=== PATIENT | male | born 1975 | race Caucasian/White ===

== ENCOUNTER 2016-09-08 06:14 | Day surgery (SDC) | payer OTHER ==
[2016-09-03 12:20] VITALS: BMI 27.8
[~2016-09-08 06:14] MED LIST: DEXAMETHASONE SOD PHOSPHATE 10 MG/ML 1 ML VIAL IV ONE; HYDROmorphone 1 MG/ML 1 ML SYRINGE IVP PRN; LACTATED RINGERS 1,000 ML IV SCH; MIDAZOLAM 2 MG/2 ML VIAL IV PRN; ONDANSETRON 4 MG/2 ML VIAL IVP ONE; ceFAZolin 2 GM in SODIUM CHLORIDE 0.9% 100 ML IVPB ONE; metroNIDAZOLE-NS PMX 500 MG in SALINE 1 100ML.BAG IVPB ONE
[2016-09-08] MEDS ORDERED: KETOROLAC 30 MG/ML 1 ML VIAL ONE (07:37)
[2016-09-08] MEDS ORDERED: LIDOCAINE 1% INJ 10MG/ML (20 ML MDV) ONE (07:37)
[2016-09-08] MEDS ORDERED: ONDANSETRON 4 MG/2 ML VIAL ONE (07:37)
[2016-09-08] MEDS ORDERED: SUCCINYLCHOLINE CHLORIDE 100 MG/5 ML SYR IV ONE (07:37)
[2016-09-08] MEDS ORDERED: fentaNYL (PF) 50 MCG/ML 2 ML AMP ONE (07:37)
[2016-09-08] MEDS ORDERED: MIDAZOLAM 2 MG/2 ML VIAL ONE (07:37)
[2016-09-08] MEDS ORDERED: DEXAMETHASONE SOD PHOS (MDV) 100 MG/10 ML VIAL ONE (07:37)
[2016-09-08] MEDS ORDERED: PROPOFOL 10 MG/ML 20 ML VIAL IV ONE (07:37)
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
[2016-09-08 09:09] VITALS: RESP 18; TEMP 97
[2016-09-08 09:23] LABS: Basophils # (A) 0.1 k/uL (0-0.2); Basophils % (A) 1 %; CHCM 33.6; Eosinophils # (A) 0.2 k/uL (0-0.7); Eosinophils % (A) 1 %; HCT 42.2 % (39.0-53.0); HDW 2.73; HGB 14.2 gm/dL (13.0-17.5); Luc # (Auto) 0.23; Luc % (Auto) 2; Lymphocytes # (A) 2.1 k/uL (1.0-4.8); Lymphocytes % (A) 18 %; MCH 29.1 pg (25.0-35.0); MCHC 33.6 g/dL (31.0-37.0); MCV 86.6 fL (80.0-100.0); Mean Platelet Volume 6.8; Monocytes # (A) 0.5 k/uL (0-1.0); Monocytes % (A) 5 %; Neutrophils # (A) 8.3 k/uL (1.3-7.7); Neutrophils % (A) 73 %; RBC 4.87 m/uL (4.30-5.90); RDW 12.6 % (11.5-15.5); WBC 11.3 k/uL (3.8-10.6); WBC (Perox) 10.91
[2016-09-08 09:37] LABS: ALT 39 U/L (21-72); AST 20 U/L (17-59); Alkaline Phosphatase 60 U/L (38-126); Anion Gap 9 mmol/L; Blood Urea Nitrogen 11 mg/dL (9-20); Calcium 8.4 mg/dL (8.4-10.2); Carbon Dioxide 27 mmol/L (22-30); Chloride 106 mmol/L (98-107); Glucose 94 mg/dL (74-99); Non-African American GFR(MDRD) >60 (>60 ml/min/1.73 sqM); Sodium 142 mmol/L (137-145); Total Bilirubin 0.6 mg/dL (0.2-1.3); Total Protein 6.5 g/dL (6.3-8.2)
[2016-09-08 10:06] LABS: Potassium 3.9 mmol/L (3.5-5.1)
[2016-09-08 10:30] VITALS: BP 136/86; PULSE 86
== END 2016-09-08 10:41 | disposition home or self-care (01) ==
LOC: OR 06:14
PROVIDERS: ATTEND Dentist
DX: Z03.89 Encounter for observation for other suspected diseases and conditions ruled out (principal); Z87.820 Personal history of traumatic brain injury; Z98.2 Presence of cerebrospinal fluid drainage device
CPT/HCPCS: 41899; 80053; 85025; J2250; J2405; J2001; J3010; J1885; J1100; J0330; J2704

== ENCOUNTER 2017-05-04 16:46 | Emergency (ER) | payer OTHER ==
[2017-05-04 16:53] VITALS: BP 132/97; PULSE 110; RESP 18; TEMP 99.2
[2017-05-04] MEDS ORDERED: DIPH,PERTUS(ACELL)TETVAC-LF 0.5 ML VIAL IM ONE (17:07)
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
== END 2017-05-04 17:23 | disposition home or self-care (01) ==
LOC: EC 16:46
DX: S00.01XA Abrasion of scalp, initial encounter (principal); Z87.820 Personal history of traumatic brain injury; Z23 Encounter for immunization; Z79.899 Other long term (current) drug therapy; W01.198A Fall on same level from slipping, tripping and stumbling with subsequent striking against other object, initial encounter; Y92.009 Unspecified place in unspecified non-institutional (private) residence as the place of occurrence of the external cause
CPT/HCPCS: 90471; 90715; 99282

== ENCOUNTER 2017-09-22 06:18 | Day surgery (SDC) | payer OTHER ==
[2017-09-15 13:20] VITALS: BMI 29.7
[~2017-09-22 06:18] MED LIST changes: -DEXAMETHASONE SOD PHOSPHATE 10 MG/ML 1 ML VIAL IV ONE; -HYDROmorphone 1 MG/ML 1 ML SYRINGE IVP PRN; +LIDOCAINE 1% 20 ML VIAL (10MG/ML) FOR IV START INTRADERMA PRN; -MIDAZOLAM 2 MG/2 ML VIAL IV PRN; +MORPHINE SULFATE 2 MG/ML SYRINGE IV PRN; -ceFAZolin 2 GM in SODIUM CHLORIDE 0.9% 100 ML IVPB ONE; +ceFAZolin IN SWFI 2 GM/20 ML SYRINGE IVP ONE
[2017-09-22] MEDS ORDERED: fentaNYL (PF) 50 MCG/ML 2 ML AMP ONE (08:27)
[2017-09-22] MEDS ORDERED: SUCCINYLCHOLINE CHLORIDE 100 MG/5 ML SYR IV ONE (08:27)
[2017-09-22] MEDS ORDERED: PHENYLEPHRINE-0.9% NACL SYG 1 MG/10 ML SYRINGE ONE (08:27)
[2017-09-22] MEDS ORDERED: ACETAMINOPHEN IV (For NPO) 1,000 MG/100 ML VIAL ONE (08:27)
[2017-09-22] MEDS ORDERED: ONDANSETRON 4 MG/2 ML VIAL ONE (08:27)
[2017-09-22] MEDS ORDERED: KETOROLAC 30 MG/ML 1 ML VIAL ONE (08:27)
[2017-09-22] MEDS ORDERED: ROCURONIUM BROMIDE 10 MG/ML 10 ML VIAL IV ONE (08:27)
[2017-09-22] MEDS ORDERED: KETAMINE 10 MG/ML 20 ML VIAL ONE (08:27)
[2017-09-22] MEDS ORDERED: GLYCOPYRROLATE 0.2 MG/ML 2 ML VIAL ONE (08:27)
[2017-09-22] MEDS ORDERED: MIDAZOLAM 2 MG/2 ML VIAL ONE (08:27)
[2017-09-22] MEDS ORDERED: NEOSTIGMINE 1 MG/ML 10 ML VIAL ONE (08:27)
[2017-09-22] MEDS ORDERED: PROPOFOL 10 MG/ML 20 ML VIAL IV ONE (08:27)
[2017-09-22 08:37] LABS: Basophils % (A) 0 %; Eosinophils # (A) 0.2 k/uL (0-0.7); Eosinophils % (A) 2 %; HCT 46.6 % (39.0-53.0); HGB 15.6 gm/dL (13.0-17.5); Lymphocytes # (A) 1.8 k/uL (1.0-4.8); Lymphocytes % (A) 21 %; MCH 28.2 pg (25.0-35.0); MCHC 33.6 g/dL (31.0-37.0); Mean Platelet Volume 6.9; Monocytes # (A) 0.4 k/uL (0-1.0); Monocytes % (A) 5 %; Neutrophils # (A) 6.1 k/uL (1.3-7.7); Neutrophils % (A) 70 %; Platelet Count 296 k/uL (150-450); RBC 5.54 m/uL (4.30-5.90); RDW 12.8 % (11.5-15.5); WBC 8.8 k/uL (3.8-10.6)
[2017-09-22 08:57] LABS: ALT 39 U/L (21-72); AST 18 U/L (17-59); Albumin 3.8 g/dL (3.5-5.0); Alkaline Phosphatase 68 U/L (38-126); Anion Gap 12 mmol/L; Blood Urea Nitrogen 10 mg/dL (9-20); Calcium 8.8 mg/dL (8.4-10.2); Carbon Dioxide 27 mmol/L (22-30); Chloride 105 mmol/L (98-107); Cholesterol 127 mg/dL (<200); Glucose 99 mg/dL (74-99); HDL Cholesterol 29 mg/dL (40-60); LDL Cholesterol,Calculated 83 mg/dL (0-99); Potassium 3.8 mmol/L (3.5-5.1); Sodium 144 mmol/L (137-145); Total Bilirubin 0.3 mg/dL (0.2-1.3); Total Protein 6.8 g/dL (6.3-8.2); Triglycerides 73 mg/dL (<150)
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
[2017-09-22 10:44] VITALS: RESP 16; TEMP 98
[2017-09-22] MEDS ORDERED: LACTATED RINGERS 1,000 ML IV ONE (11:16)
[2017-09-22 12:25] VITALS: BP 120/70; PULSE 94
== END 2017-09-22 12:34 | disposition home or self-care (01) ==
LOC: OR 06:18
PROVIDERS: ATTEND Dentist
DX: K02.9 Dental caries, unspecified (principal); K06.8 Other specified disorders of gingiva and edentulous alveolar ridge; K08.89 Other specified disorders of teeth and supporting structures; Z87.820 Personal history of traumatic brain injury; Z91.81 History of falling; Z98.2 Presence of cerebrospinal fluid drainage device
CPT/HCPCS: 80061; 80053; 85025; 41899; J2250; J2710; J2405; J3010; J1885; J0131; J2370; J0330; J2704; J0690

== ENCOUNTER → 2018-10-07 | Day surgery (SDC) | payer OTHER ==
[2018-10-04 14:31] VITALS: BMI 29.7
[~2018-10-07] MED LIST changes: +DEXAMETHASONE SOD PHOSPHATE 10 MG/ML 1 ML VIAL IV ONE; +HYDROmorphone 0.5 MG/0.5 ML SYRINGE IVP PRN; +KETAMINE 50 MG/ML 10 ML VIAL IM STA; -LIDOCAINE 1% 20 ML VIAL (10MG/ML) FOR IV START INTRADERMA PRN; +LIDOCAINE 1% INJ 10MG/ML (20 ML MDV) ONE; +MIDAZOLAM 2 MG/2 ML VIAL IV PRN; -MORPHINE SULFATE 2 MG/ML SYRINGE IV PRN; +PHENYLEPHRINE-0.9% NACL SYG 1 MG/10 ML SYRINGE ONE; +PROPOFOL 10 MG/ML 20 ML VIAL IV ONE; +SUCCINYLCHOLINE CHLORIDE 100 MG/5 ML SYR IV ONE; +fentaNYL (PF) 50 MCG/ML 2 ML AMP ONE
[2018-10-07 08:30] LABS: Basophils % (A) 0 %; Eosinophils # (A) 0.2 k/uL (0-0.7); Eosinophils % (A) 2 %; HCT 49.3 % (39.0-53.0); HGB 16.5 gm/dL (13.0-17.5); Lymphocytes # (A) 2.1 k/uL (1.0-4.8); Lymphocytes % (A) 21 %; MCH 28.4 pg (25.0-35.0); MCHC 33.5 g/dL (31.0-37.0); MCV 84.8 fL (80.0-100.0); Mean Platelet Volume 7.3; Monocytes # (A) 0.4 k/uL (0-1.0); Monocytes % (A) 4 %; Neutrophils # (A) 7.1 k/uL (1.3-7.7); Neutrophils % (A) 71 %; Platelet Count 352 k/uL (150-450); RBC 5.81 m/uL (4.30-5.90); RDW 13.8 % (11.5-15.5); WBC 10.1 k/uL (3.8-10.6)
[2018-10-07 08:45] LABS: ALT 32 U/L (21-72); AST 19 U/L (17-59); African American GFR (CKD) >90 (>60 ml/min/1.73 sqM); Albumin 4.4 g/dL (3.5-5.0); Alkaline Phosphatase 95 U/L (38-126); Anion Gap 10 mmol/L; Blood Urea Nitrogen 10 mg/dL (9-20); Calcium 9.4 mg/dL (8.4-10.2); Carbon Dioxide 26 mmol/L (22-30); Chloride 107 mmol/L (98-107); Cholesterol 132 mg/dL (<200); Glucose 103 mg/dL (74-99); HDL Cholesterol 31 mg/dL (40-60); LDL Cholesterol,Calculated 81 mg/dL (0-99); Potassium 4.2 mmol/L (3.5-5.1); Sodium 143 mmol/L (137-145); Total Bilirubin 0.3 mg/dL (0.2-1.3); Total Protein 7.9 g/dL (6.3-8.2); Triglycerides 100 mg/dL (<150)
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
[2018-10-07 10:17] VITALS: TEMP 97
[2018-10-07 10:42] VITALS: RESP 17
[2018-10-07 11:11] VITALS: BP 122/72; PULSE 96
== END ==
LOC: OR 06:29
PROVIDERS: ATTEND Dentist
DX: K02.9 Dental caries, unspecified (principal); G47.33 Obstructive sleep apnea (adult) (pediatric); R41.3 Other amnesia; R32 Unspecified urinary incontinence; Z99.89 Dependence on other enabling machines and devices; Z87.820 Personal history of traumatic brain injury; Z98.2 Presence of cerebrospinal fluid drainage device
CPT/HCPCS: 80061; 80053; 85025; 41899; J1100; J2405; J2001; J3010; J2370; J0330; J2704; J0690

== ENCOUNTER → 2019-05-29 | Outpatient (CLI) | payer OTHER ==
--- NOTE | 2019-05-30 12:12 | XR ---
Left hip HISTORY: Left hip pain 2 views of the left hip, no comparisons Patient shows 3 screws coursing across the left femoral neck. Alignment is maintained. Bone mineraliz ation is normal. Mild loss of joint space. No fracture or dislocation. IMPRESSION: Postop changes. Suspect some mild osteoarthritic change.
--- NOTE | 2019-05-30 12:18 | XR ---
Lumbosacral spine HISTORY: Low back pain 5 views of lumbosacral spine There is no evident spondylolysis or spondylolisthesis. Lumbar vertebral bodies show preserved height and bone mineralization. Sclerosis present in the posterior elements of the lower lumbar spine. Susp ect there is a transitional vertebral body at L5. Some loss of disc height L4-5. There is a mild spin al curvature, rotation. Some tubing is overlying the right hemiabdomen. IMPRESSION: Degenerative disc disease and facet arthropathy, consider lumbar MRI.
== END | disposition home or self-care (01) ==
LOC: RADXRMAIN 15:41
PROVIDERS: ATTEND Family Medicine
DX: M51.37 Other intervertebral disc degeneration, lumbosacral region (principal); M46.97 Unspecified inflammatory spondylopathy, lumbosacral region; M25.562 Pain in left knee; Z98.890 Other specified postprocedural states
CPT/HCPCS: 72110; 73502

== ENCOUNTER 2020-11-29 06:30 | Day surgery (SDC) | payer MEDICARE, OTHER ==
[2020-11-25 10:58] VITALS: BMI 33.2
[~2020-11-29 06:30] MED LIST changes: -DEXAMETHASONE SOD PHOSPHATE 10 MG/ML 1 ML VIAL IV ONE; +DEXAMETHASONE SOD PHOSPHATE 4 MG/ML 1 ML VIAL IV ONE; -HYDROmorphone 0.5 MG/0.5 ML SYRINGE IVP PRN; +KETAMINE 10 MG/ML 20 ML VIAL IV ONE; -KETAMINE 50 MG/ML 10 ML VIAL IM STA; +LIDOCAINE 1% (10MG/ML) FOR IV START INTRADERMA PRN; -LIDOCAINE 1% INJ 10MG/ML (20 ML MDV) ONE; -MIDAZOLAM 2 MG/2 ML VIAL IV PRN; -PHENYLEPHRINE-0.9% NACL SYG 1 MG/10 ML SYRINGE ONE; -PROPOFOL 10 MG/ML 20 ML VIAL IV ONE; -SUCCINYLCHOLINE CHLORIDE 100 MG/5 ML SYR IV ONE; -ceFAZolin IN SWFI 2 GM/20 ML SYRINGE IVP ONE; -fentaNYL (PF) 50 MCG/ML 2 ML AMP ONE; -metroNIDAZOLE-NS PMX 500 MG in SALINE 1 100ML.BAG IVPB ONE; +metroNIDAZOLE-NS PMX 500 MG in SALINE 1 100ML.BAG IVPB PRN
[2020-11-29] MEDS ORDERED: ONDANSETRON 4 MG/2 ML VIAL ONE (06:36)
[2020-11-29] MEDS ORDERED: HYDROmorphone 0.5 MG/0.5 ML SYRINGE IVP PRN (07:00)
[2020-11-29] MEDS ORDERED: LACTATED RINGERS 1,000 ML IV ONE ×2 (07:23→09:29)
[2020-11-29] MEDS ORDERED: SUCCINYLCHOLINE CHLORIDE 100 MG/5 ML SYR IV ONE (07:28)
[2020-11-29] MEDS ORDERED: PHENYLEPHRINE-0.9% NACL SYG 1,000 MCG/10 ML SYRINGE ONE (07:28)
[2020-11-29] MEDS ORDERED: LIDOCAINE 1% INJ 10MG/ML (20 ML MDV) ONE (07:28)
[2020-11-29] MEDS ORDERED: PROPOFOL 10 MG/ML 20 ML VIAL IV ONE (07:28)
[2020-11-29] MEDS ORDERED: KETAMINE 10 MG/ML 20 ML VIAL ONE (07:28)
[2020-11-29] MEDS ORDERED: KETOROLAC 15 MG/ML 1 ML VIAL ONE (07:28)
[2020-11-29] MEDS ORDERED: fentaNYL (PF) 50 MCG/ML 2 ML AMP ONE (07:28)
[2020-11-29] MEDS ORDERED: MIDAZOLAM 2 MG/2 ML VIAL ONE (07:28)
[2020-11-29 07:31] LABS: Basophils # (A) 0.1 k/uL (0-0.2); Basophils % (A) 1 %; Eosinophils # (A) 0.3 k/uL (0-0.7); Eosinophils % (A) 3 %; HCT 50.1 % (39.0-53.0); HGB 16.4 gm/dL (13.0-17.5); Lymphocytes # (A) 2.4 k/uL (1.0-4.8); Lymphocytes % (A) 22 %; MCH 28.5 pg (25.0-35.0); MCHC 32.8 g/dL (31.0-37.0); MCV 86.8 fL (80.0-100.0); Mean Platelet Volume 7.5; Monocytes # (A) 0.5 k/uL (0-1.0); Monocytes % (A) 4 %; Neutrophils # (A) 7.4 k/uL (1.3-7.7); Neutrophils % (A) 68 %; Platelet Count 375 k/uL (150-450); RBC 5.77 m/uL (4.30-5.90); RDW 13.5 % (11.5-15.5); WBC 10.9 k/uL (3.8-10.6)
[2020-11-29 07:45] LABS: African American GFR (CKD) >90 (>60 ml/min/1.73 sqM); Anion Gap 12 mmol/L; Blood Urea Nitrogen 11 mg/dL (9-20); Calcium 9.4 mg/dL (8.4-10.2); Carbon Dioxide 22 mmol/L (22-30); Chloride 109 mmol/L (98-107); Glucose 116 mg/dL (74-99); Non-African American GFR(CKD) >90 (>60 ml/min/1.73 sqM); Potassium 4.3 mmol/L (3.5-5.1); Sodium 143 mmol/L (137-145)
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
[2020-11-29 09:43] VITALS: RESP 16; TEMP 96.8
[2020-11-29 10:55] VITALS: BP 135/92; PULSE 97
[2020-11-29 11:33] LABS: Chol/HDL Ratio 3.91; Cholesterol 125 mg/dL (0-200)
--- NOTE | 2020-11-29 14:01 | ECHOF ---
Referral Reason:TACHYCARDIA MEASUREMENTS -------- HEIGHT: 170.2 cm WEIGHT: 95.7 kg BP: 148/95 RVIDd: 1.4 cm (< 3.3) IVSd: 1.1 cm (0.6 - 1.1) LVIDd: 4.3 cm (3.9 - 5.3) LVPWd: 1.6 cm (0.6 - 1.1) IVSs: 1.8 cm LVIDs: 2.9 cm LVPWs: 1.5 cm Ao Diam: 3.1 cm (2.0 - 3.7) AV Cusp: 1.7 cm (1.5 - 2.6) LA Diam: 2.5 cm (2.7 - 3.8) MV EXCURSION: 22.907 mm (> 18.000) MV EF SLOPE: 170 mm/s (70 - 150) EPSS: 0.9 cm MV E Marc: 0.63 m/s MV DecT: 178 ms MV A Marc: 0.54 m/s MV E/A Ratio: 1.17 RAP: 5.00 mmHg RVSP: 6.76 mmHg FINDINGS -------- This was a technically difficult study with suboptimal views. The left ventricular size is normal. There is mild concentric left ventricular hypertrophy. Overa ll left ventricular systolic function is normal with, an EF between 55 - 60 %. The right ventricle is normal in size. The left atrial size is normal. The right atrial size is normal. Lumason used The aortic valve is trileaflet and appears structurally normal. The mitral valve is normal. There is trace mitral regurgitation. The tricuspid valve appears structurally normal. Trace tricuspid regurgitation present. Right fransisco tricular systolic pressure is normal at < 35 mmHg. There is no pulmonic regurgitation present. The aortic root size is normal. There is no pericardial effusion. CONCLUSIONS -------- 1. The left ventricular size is normal. 2. There is mild concentric left ventricular hypertrophy. 3. Overall left ventricular systolic function is normal with, an EF between 55 - 60 %. 4. There is trace mitral regurgitation. 5. Trace tricuspid regurgitation present. 6. There is no pericardial effusion. REFERENCE INVESTIGATOR: Sara Almazan RDCS
[2020-12-02 17:07] LABS: Hemoglobin A1C 5.8 % (4.0-6.0)
== END 2020-11-29 11:14 | disposition home or self-care (01) ==
LOC: OR 06:30
PROVIDERS: ATTEND Dentist
DX: R00.0 Tachycardia, unspecified (principal); G47.33 Obstructive sleep apnea (adult) (pediatric)
CPT/HCPCS: 93005; 80061; 80048; 85025; 83036; C8929; J2250; J1100; J2405; J2001; J3010; J1885; J2370; J0330; J2704; Q9950; 93306

== ENCOUNTER → 2022-01-16 | Day surgery (SDC) | payer MEDICARE, OTHER ==
[~2022-01-16] MED LIST changes: +BACITRACIN ZINC 500 UNIT/GM OINT 28.4 GM TUBE TOPICAL ONE; -DEXAMETHASONE SOD PHOSPHATE 4 MG/ML 1 ML VIAL IV ONE; +GELATIN SPONGE,ABSORB (SMALL) 1 EACH SPONGE TOPICAL ONE; +HYDROmorphone (PF) 1 MG/ML ONE; +HYDROmorphone 0.5 MG/0.5 ML SYRINGE IVP PRN; -KETAMINE 10 MG/ML 20 ML VIAL IV ONE; +KETAMINE 10 MG/ML 20 ML VIAL ONE; +Ketamine (HIGH CONC) for PREOP 5 ML VIAL IM ONE; +LACTATED RINGERS 1,000 ML IV ONE; -LIDOCAINE 1% (10MG/ML) FOR IV START INTRADERMA PRN; +LIDOCAINE 2% INJ 20 MG/ML (2 ML VIAL) ONE; +LIDOCAINE 2% INJ 20 MG/ML SQ ONE; +MIDAZOLAM 2 MG/2 ML VIAL IV PRN; +MIDAZOLAM 2 MG/2 ML VIAL ONE; +PHENYLEPHRINE-0.9% NACL SYG 1,000 MCG/10 ML SYRINGE ONE; +PROPOFOL 10 MG/ML 20 ML VIAL IV ONE; +SUCCINYLCHOLINE CHLORIDE 200 MG/10 ML VIAL IV ONE; +fentaNYL (PF) 50 MCG/ML 2 ML AMP ONE
[2022-01-16 06:08] VITALS: TEMP 97
[2022-01-16 06:34] LABS: Basophils # (A) 0.1 k/uL (0-0.2); Basophils % (A) 1 %; Eosinophils # (A) 0.2 k/uL (0-0.7); Eosinophils % (A) 2 %; HGB 16.3 gm/dL (13.0-17.5); Lymphocytes # (A) 2.6 k/uL (1.0-4.8); Lymphocytes % (A) 24 %; MCH 28.2 pg (25.0-35.0); MCHC 32.6 g/dL (31.0-37.0); MCV 86.3 fL (80.0-100.0); Mean Platelet Volume 7.5; Monocytes # (A) 0.5 k/uL (0-1.0); Monocytes % (A) 5 %; Neutrophils # (A) 6.9 k/uL (1.3-7.7); Neutrophils % (A) 66 %; Platelet Count 330 k/uL (150-450); RDW 13.4 % (11.5-15.5); WBC 10.5 k/uL (3.8-10.6)
[2022-01-16 06:41] LABS: African American GFR (CKD) >90 (>60 ml/min/1.73 sqM); Anion Gap 11 mmol/L; Blood Urea Nitrogen 9 mg/dL (9-20); Calcium 8.7 mg/dL (8.4-10.2); Carbon Dioxide 26 mmol/L (22-30); Chloride 105 mmol/L (98-107); Glucose 135 mg/dL (74-99); Non-African American GFR(CKD) >90 (>60 ml/min/1.73 sqM); Potassium 4.2 mmol/L (3.5-5.1); Sodium 142 mmol/L (137-145)
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
--- NOTE | 2022-01-16 08:03 | P.OP ---
Date of Procedure: 01/16/22 Preoperative Diagnosis: Onychocryptosis right hallux Postoperative Diagnosis: Same Procedure(s) Performed: Total excision right hallux nail nailbed right Anesthesia: local Surgeon: Hi Torres Estimated Blood Loss (ml): 10 Pathology: none sent Condition: stable Disposition: same day Indications for Procedure: Painful onychocryptotic nail right hallux Operative Findings: Consistent with clinical findings Description of Procedure: Patient presented with guardians 2 hours prior to surgery having been nothing by mouth since previous midnight. All labs H&P x-rays consent were reviewed and no counter indication to the above procedure was found. Patient was seen preoperatively in the holding unit the right foot was identified and we answered questions regarding the surgery to the guardians the best of our ability. Radha nue consent for surgery patient was brought to the OR and placed on the OR table in supine position sedation was given and patient was right foot was prepped in usual aseptic manner. Sterile draping was applied after which the right hallux anesthetized using a total 6 mL of 2% Xylocaine plain. A [place] drain was placed about the base of the hallux for tourniquet. Using a 15 blade the attention was directed to the right hallux where 2 incisions were made in the medial and lateral proximal border approximately a 10 cm in length. The 15 blade was then used to remove the underlying matrix area with sharp excision to bone. This incision was carried from the medial aspect to the lateral aspect of the distal phalanx and then covering the area but the lunula of the nail. The nail plate was removed previous to this using a elevator. After removal of the nail plate and matrix area the area was inspected and adequate surgical reduction clinical deformity was noted a curette was used in addition to remove any particulate matrix area from the osseous tissue underlying. The area was then copiously lavaged with sterile saline solution. Using 5-0 Vicryl simple sutures the proximal nail fold was repaired to the nail bed. The [place] drain tourniquet was then released and adequate vascular flow was noted to all areas the right hallux. The wound was then dressed with bacitracin Gelfoam Telfa 4 x 4's 3 inch Sumeet and Kerlix. An Aldo wrap was used to secure the dressing to the foot and ankle and to assure adequate placement of the dressing over the next few days. After this procedure a dental cleaning procedure was performed on the patient please see that note. Patient was stable at the end of the procedure and handed off to the dental specialist for orders were written for postop care patient is to return to clinic as instructed.
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
[2022-01-16 10:56] VITALS: BP 150/77; PULSE 90; RESP 17
[2022-01-16 11:56] LABS: Chol/HDL Ratio 3.66 Ratio; LDL Cholesterol,Calculated 81.7 mg/dL (0.0-131.0)
== END ==
LOC: OR 05:47
PROVIDERS: ATTEND Dentist
DX: L60.0 Ingrowing nail (principal); L03.031 Cellulitis of right toe; K02.9 Dental caries, unspecified; R41.3 Other amnesia; G47.30 Sleep apnea, unspecified; Z87.820 Personal history of traumatic brain injury; R53.1 Weakness; R29.6 Repeated falls; R47.89 Other speech disturbances; N39.44 Nocturnal enuresis; Z86.16 Personal history of COVID-19; Z98.890 Other specified postprocedural states; Z80.8 Family history of malignant neoplasm of other organs or systems
CPT/HCPCS: 88305; 80061; 80048; 85025; 88312; 87070; 87205; 87075; 11750; 41899; J2001 ×2; J2250; J0330; J0690; J2405; J3010; J1170; J2370; J2704

== ENCOUNTER 2023-01-21 06:52 | Day surgery (SDC) | payer OTHER, MEDICARE ==
[~2023-01-21 06:52] MED LIST changes: -BACITRACIN ZINC 500 UNIT/GM OINT 28.4 GM TUBE TOPICAL ONE; +DEXAMETHASONE SOD PHOSPHATE 4 MG/ML 1 ML VIAL IV ONE; -GELATIN SPONGE,ABSORB (SMALL) 1 EACH SPONGE TOPICAL ONE; -HYDROmorphone (PF) 1 MG/ML ONE; -HYDROmorphone 0.5 MG/0.5 ML SYRINGE IVP PRN; -KETAMINE 10 MG/ML 20 ML VIAL ONE; -Ketamine (HIGH CONC) for PREOP 5 ML VIAL IM ONE; -LACTATED RINGERS 1,000 ML IV ONE; +LIDOCAINE 1% (10MG/ML) FOR IV START INTRADERMA PRN; -LIDOCAINE 2% INJ 20 MG/ML (2 ML VIAL) ONE; -LIDOCAINE 2% INJ 20 MG/ML SQ ONE; -MIDAZOLAM 2 MG/2 ML VIAL IV PRN; -MIDAZOLAM 2 MG/2 ML VIAL ONE; -PHENYLEPHRINE-0.9% NACL SYG 1,000 MCG/10 ML SYRINGE ONE; -PROPOFOL 10 MG/ML 20 ML VIAL IV ONE; -SUCCINYLCHOLINE CHLORIDE 200 MG/10 ML VIAL IV ONE; -fentaNYL (PF) 50 MCG/ML 2 ML AMP ONE
[2023-01-21] MEDS ORDERED: HYDROmorphone 0.5 MG/0.5 ML SYRINGE IVP PRN (07:00)
[2023-01-21] MEDS ORDERED: ROCURONIUM 10 MG/ML (5 ML VIAL) IV ONE (07:25)
[2023-01-21] MEDS ORDERED: GLYCOPYRROLATE 0.2 MG/ML 2 ML VIAL ONE (07:25)
[2023-01-21] MEDS ORDERED: fentaNYL (PF) 50 MCG/ML 2 ML AMP ONE (07:25)
[2023-01-21] MEDS ORDERED: NEOSTIGMINE 1 MG/ML 10 ML VIAL ONE (07:25)
[2023-01-21] MEDS ORDERED: PROPOFOL 10 MG/ML 20 ML VIAL IV ONE (07:25)
[2023-01-21] MEDS ORDERED: KETAMINE HCL IN 0.9 % NACL 50 MG/5 ML SYRINGE ONE (07:25)
[2023-01-21] MEDS ORDERED: LIDOCAINE 1% INJ 10MG/ML (20 ML MDV) ONE (07:25)
[2023-01-21] MEDS ORDERED: PHENYLEPHRINE-0.9% NACL SYG 1,000 MCG/10 ML SYRINGE ONE (07:25)
[2023-01-21 07:32] LABS: Basophils % (A) 0 %; Eosinophils # (A) 0.2 k/uL (0-0.7); Eosinophils % (A) 2 %; HCT 50.3 % (39.0-53.0); HGB 16.5 gm/dL (13.0-17.5); Lymphocytes # (A) 2.3 k/uL (1.0-4.8); Lymphocytes % (A) 22 %; MCH 28.4 pg (25.0-35.0); MCHC 32.7 g/dL (31.0-37.0); MCV 86.7 fL (80.0-100.0); Mean Platelet Volume 7.5; Monocytes # (A) 0.6 k/uL (0-1.0); Monocytes % (A) 6 %; Neutrophils % (A) 68 %; Platelet Count 349 k/uL (150-450); RDW 13.5 % (11.5-15.5); WBC 10.3 k/uL (3.8-10.6)
[2023-01-21 07:46] LABS: ALT 27 U/L (4-49); AST 20 U/L (17-59); African American GFR (CKD) >90 (>60 ml/min/1.73 sqM); Albumin 3.9 g/dL (3.5-5.0); Alkaline Phosphatase 75 U/L (38-126); Anion Gap 10 mmol/L; Blood Urea Nitrogen 10 mg/dL (9-20); Calcium 8.8 mg/dL (8.4-10.2); Carbon Dioxide 27 mmol/L (22-30); Chloride 105 mmol/L (98-107); Glucose 110 mg/dL (74-99); Non-African American GFR(CKD) >90 (>60 ml/min/1.73 sqM); Potassium 3.7 mmol/L (3.5-5.1); Sodium 142 mmol/L (137-145); Total Bilirubin 0.4 mg/dL (0.2-1.3); Total Protein 7.5 g/dL (6.3-8.2)
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
[2023-01-21] MEDS ORDERED: LACTATED RINGERS 1,000 ML IV ONE (08:54)
[2023-01-21 09:54] VITALS: TEMP 96.6
[2023-01-21 11:19] VITALS: BP 134/87; RESP 18
[2023-01-21 11:31] VITALS: PULSE 88
[2023-01-21 11:55] LABS: Chol/HDL Ratio 3.99 Ratio; LDL Cholesterol,Calculated 74.5 mg/dL (0.0-131.0)
== END 2023-01-21 11:25 | disposition home or self-care (01) ==
LOC: OR 06:52
PROVIDERS: ATTEND Dentist
DX: K02.9 Dental caries, unspecified (principal); G47.30 Sleep apnea, unspecified; Z86.16 Personal history of COVID-19; Z83.3 Family history of diabetes mellitus; Z79.899 Other long term (current) drug therapy
CPT/HCPCS: 84153; 80061; 80053; 85025; 83036; 41899; J1100; J2710; J2405; J2001; J3010; J2704; J2371; J1836

== ENCOUNTER 2024-01-28 06:28 | Day surgery (SDC) | payer MEDICARE, OTHER ==
[~2024-01-28 06:28] MED LIST changes: -DEXAMETHASONE SOD PHOSPHATE 4 MG/ML 1 ML VIAL IV ONE; -LACTATED RINGERS 1,000 ML IV SCH; -LIDOCAINE 1% (10MG/ML) FOR IV START INTRADERMA PRN; -ONDANSETRON 4 MG/2 ML VIAL IVP ONE
[2024-01-28] MEDS ORDERED: HYDROmorphone 0.5 MG/0.5 ML SYRINGE IVP PRN (07:00)
[2024-01-28] MEDS: MIDAZOLAM 2 MG/2 ML VIAL IV PRN (07:14)
[2024-01-28] MEDS: LACTATED RINGERS 1,000 ML IV SCH (07:14)
[2024-01-28] MEDS ORDERED: SUCCINYLCHOLINE CHLORIDE 200 MG/10 ML VIAL IV ONE (07:22)
[2024-01-28] MEDS ORDERED: DEXAMETHASONE SOD PHOSPHATE 4 MG/ML 1 ML VIAL ONE (07:22)
[2024-01-28] MEDS ORDERED: fentaNYL (PF) 50 MCG/ML 2 ML AMP ONE (07:22)
[2024-01-28] MEDS ORDERED: LIDOCAINE 1% INJ 10MG/ML (20 ML MDV) ONE (07:22)
[2024-01-28] MEDS ORDERED: PHENYLEPHRINE 10 MG/ML VIAL ONE (07:22)
[2024-01-28] MEDS ORDERED: PROPOFOL 10 MG/ML 20 ML VIAL IV ONE (07:22)
[2024-01-28] MEDS ORDERED: ONDANSETRON 4 MG/2 ML VIAL ONE (07:22)
[2024-01-28 07:33] LABS: Basophils # (A) 0.1 k/uL (0-0.2); Basophils % (A) 1 %; Eosinophils # (A) 0.2 k/uL (0-0.7); Eosinophils % (A) 2 %; HGB 16.5 gm/dL (13.0-17.5); Lymphocytes % (A) 21 %; MCHC 33.8 g/dL (31.0-37.0); MCV 85.9 fL (80.0-100.0); Mean Platelet Volume 8.1; Monocytes # (A) 0.4 k/uL (0-1.0); Monocytes % (A) 5 %; Neutrophils # (A) 6.9 k/uL (1.3-7.7); Neutrophils % (A) 71 %; Platelet Count 322 k/uL (150-450); RDW 13.7 % (11.5-15.5); WBC 9.6 k/uL (3.8-10.6)
[2024-01-28] MEDS: IV FLUID CONTINUATION 1,000 ML IV ONE (07:34)
[2024-01-28 07:48] LABS: African American GFR (CKD) >90 (>60 ml/min/1.73 sqM); Anion Gap 6 mmol/L; Blood Urea Nitrogen 11 mg/dL (9-20); Calcium 8.9 mg/dL (8.4-10.2); Carbon Dioxide 29 mmol/L (22-30); Chloride 106 mmol/L (98-107); Glucose 112 mg/dL (74-99); Non-African American GFR(CKD) >90 (>60 ml/min/1.73 sqM); Sodium 141 mmol/L (137-145)
[2024-01-28 08:09] LABS: Potassium 4.6 mmol/L (3.5-5.1)
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
[2024-01-28 10:14] VITALS: TEMP 97.7
--- NOTE | 2024-01-28 10:29 | XR ---
EXAMINATION TYPE: XR pelvis AP view, XR knee limited 2 views each bilateral, XR Hip AP RT, XR Hip AP LT DATE OF EXAM: 01/28/2024 Comparison: None Clinical History: 48-year-old male DIAGNOSIS FOR SUBLUXATION. DEGENERATIVE ARTHRITIS Findings: Pelvis: SI joints appear symmetric and intact as does the pubic symphysis. The patient's pelvis is slightly o bliqued. Bilateral hips: There is mild superolateral narrowing of joint space left hip with 3 percutaneous pinning across the femoral neck. Alignment grossly anatomic. There is osteopenia but no clear fracture line identified. No subluxation or dislocation. Knees: Minimal early degenerative spurring in the patellofemoral compartments on both sides. Extensor mechan isms appear intact. No sizable knee joint effusions. No acute fracture, subluxation, dislocation on t hese 2 views. Impression: 1. Pelvis and bilateral hips: Previous 3 percutaneous pinning across the left femoral neck. There is osteopenia but no clear residual fracture line identified. Mild degenerative joint space narrowing at the left hip. No acute osseous abnormality seen. 2. Knees: No acute osseous abnormality seen. [facility], , 01/28/2024 10:27 AM
[2024-01-28 11:18] VITALS: BP 139/83; PULSE 91; RESP 18
[2024-01-28 15:48] LABS: Chol/HDL Ratio 4.17 Ratio; LDL Cholesterol,Calculated 84.1 mg/dL (0.0-131.0)
== END 2024-01-28 11:19 | disposition home or self-care (01) ==
LOC: OR 06:28
PROVIDERS: ATTEND Dentist
CPT/HCPCS: 72170; 73501; 80048; 80061; 82607; 83036; 85025